=== PATIENT | female | born 1980 | race Caucasian/White ===

== ENCOUNTER 2018-02-01 09:52 | Inpatient (IN) | payer OTHER ==
[2018-02-01] MEDS ORDERED: SODIUM CHLORIDE 0.9% 1000 ML INFUS.BAG IV STA (10:21)
[2018-02-01] MEDS ORDERED: ACETAMINOPHEN 1000 MG/100 ML VIAL (NON FORMULARY) IVPB ONE (10:22)
[2018-02-01] MEDS ORDERED: ALBUTEROL SO4 2.5/IPRATROPIUM 0.5 INH SOL 3 ML VIAL.NEB. NEB ONE ×2 (10:22→11:12)
--- NOTE | 2018-02-01 10:51 | PDOC ---
History of Present Illness <Tonia Lerner - Last Filed: 02/01/18 12:30> - General History Source: Patient - History of Present Illness Initial Comments: 02/01/18 10:45 Patient is a 37F with no significant medical history here today complaining of chest pain, fever, cough and shortness of breath for the past two weeks. She was seen at [facility] where she was diagnosed with pneumonia and discharged on doxycycline. Patient is on day 7/10 days of 100mg BID doxycycline. Patient was also discharged with a course of steroids that she completed. Patient describes her chest pain as a substernal pain that worsens with inspiration and cough. Patient reports coughing repeatedly until she feels like she cannot breathe. LMP 2 weeks ago. <Daniel Scanlon - Last Filed: 02/01/18 15:21> - General Chief Complaint: Respiratory Stated Complaint: CHEST PAIN Time Seen by Provider: 02/01/18 10:14 Past History <Tonia Lerner - Last Filed: 02/01/18 12:30> - Past Medical History COPD: No - Suicide/Smoking/Psychosocial Hx Smoking History: Never smoked Hx Alcohol Use: No Drug/Substance Use Hx: No <Daniel Scanlon - Last Filed: 02/01/18 15:21> - Past Medical History Allergies/Adverse Reactions: Allergies Allergy/AdvReac Type Severity Reaction Status Date / Time No Known Allergies Allergy Verified 02/01/18 10:04 Home Medications: Ambulatory Orders Unobtainable 02/01/18 Review of Systems - Review of Systems Comments:: 02/01/18 10:49 GENERAL/CONSTITUTIONAL: +fever +chills. No weakness. HEAD, EYES, EARS, NOSE AND THROAT: No change in vision. No sore throat. CARDIOVASCULAR: +chest pain +shortness of breath RESPIRATORY: +cough, +wheezing, no hemoptysis. GASTROINTESTINAL: No nausea, vomiting, diarrhea or constipation. GENITOURINARY: No dysuria, frequency, or change in urination. MUSCULOSKELETAL: No joint or muscle swelling or pain. No neck or back pain. SKIN: No rash NEUROLOGIC: No headache, vertigo, loss of consciousness, or change in strength/ sensation. ENDOCRINE: No increased thirst. No abnormal weight change HEMATOLOGIC/LYMPHATIC: No anemia, easy bleeding, or history of blood clots. ALLERGIC/IMMUNOLOGIC: No hives or skin allergy. <EronDaniel grant - Last Filed: 02/01/18 15:21> *Physical Exam - Vital Signs Last Vital Signs Temp Pulse Resp BP Pulse Ox 100.3 F H 102 H 20 135/97 100 02/01/18 10:20 02/01/18 10:20 02/01/18 10:20 02/01/18 10:20 02/01/18 11:10 <Tonia Lerner - Last Filed: 02/01/18 12:30> - Vital Signs Last Vital Signs Temp Pulse Resp BP Pulse Ox 100.3 F H 102 H 20 135/97 99 02/01/18 10:20 02/01/18 10:20 02/01/18 10:20 02/01/18 10:20 02/01/18 10:20 - Physical Exam Comments: 02/01/18 10:51 GENERAL: Awake, alert, and fully oriented, coughing HEAD: No signs of trauma, normocephalic, atraumatic EYES: PERRLA, EOMI, sclera anicteric, conjunctiva clear ENT: Auricles normal inspection, hearing grossly normal, nares patent, oropharynx clear without exudates. Moist mucosa NECK: Normal ROM, supple, no lymphadenopathy, JVD, or masses LUNGS: No distress, speaks full sentences, wheezing bilaterally HEART: Tachycardic, regular rhythm, normal S1 and S2, no murmurs, rubs or gallops, peripheral pulses normal and equal bilaterally. ABDOMEN: Soft, nontender, normoactive bowel sounds. No guarding, no rebound. No masses EXTREMITIES: Normal inspection, Normal range of motion, no edema. No clubbing or cyanosis. NEUROLOGICAL: Cranial nerves II through XII grossly intact. Normal speech, no focal sensorimotor deficits SKIN: Warm, Dry, normal turgor, no rashes or lesions noted. <GhislaineDaniel - Last Filed: 02/01/18 15:21> ED Treatment Course - LABORATORY CBC & Chemistry Diagram: 02/01/18 11:10 02/01/18 11:42 - ADDITIONAL ORDERS Additional order review: Laboratory Results 02/01/18 02/01/18 02/01/18 11:42 11:42 11:38 PT with INR INR PTT (Actin FS) VBG pH 7.37 POC VBG pCO2 52.0 POC VBG pO2 31.7 Mixed VBG HCO3 29.0 H Sodium 143 Potassium 3.9 Chloride 104 Carbon Dioxide 28 Anion Gap 11 BUN 9 Creatinine 0.6 Creat Clearance w eGFR > 60 Random Glucose 90 Lactic Acid Calcium 9.1 Total Bilirubin 0.3 AST 16 ALT 21 Alkaline Phosphatase 82 Troponin I < 0.02 Total Protein 7.6 Albumin 3.8 Serum , Qual Negative 02/01/18 02/01/18 11:10 11:10 PT with INR 11.60 INR 1.03 PTT (Actin FS) 31.6 VBG pH POC VBG pCO2 POC VBG pO2 Mixed VBG HCO3 Sodium Potassium Chloride Carbon Dioxide Anion Gap BUN Creatinine Creat Clearance w eGFR Random Glucose Lactic Acid 2.9 H* Calcium Total Bilirubin AST ALT Alkaline Phosphatase Troponin I Total Protein Albumin Serum , Qual 02/01/18 11:10 RBC 4.36 MCV 82.0 MCHC 31.7 L RDW 16.3 H MPV 8.4 Neutrophils % No Result Required. Lymphocytes % No Result Required. - Medications Given in the ED: ED Medications Discontinued Medications Generic Name Dose Route Start Last Admin Trade Name Negar PRN Reason Stop Dose Admin Acetaminophen 1,000 mg 02/01/18 10:22 02/01/18 11:13 Ofirmev Injection - IVPB 02/01/18 10:23 1,000 mg ONCE ONE Administration Albuterol/Ipratropium 3 amp 02/01/18 10:22 02/01/18 11:13 Duoneb - NEB 02/01/18 10:23 3 amp ONCE ONE Administration Sodium Chloride 2,000 ml 02/01/18 10:21 02/01/18 11:13 Normal Saline - IV 02/01/18 10:22 2,000 ml ONCE STA Administration <Tonia Lerner - Last Filed: 02/01/18 12:30> - LABORATORY CBC & Chemistry Diagram: 02/01/18 11:10 02/01/18 11:42 - RADIOLOGY Radiology Studies Ordered: Category Date Time Status CHEST X-RAY PORTABLE* [RAD] Stat Radiology 02/01/18 10:21 Ordered <Daniel Scanlon - Last Filed: 02/01/18 15:21> Medical Decision Making - Medical Decision Making 02/01/18 10:54 Patient is 37F with no significant medical history here today with cough, fever , chest pain and shortness of breath. Vital signs notable for tachycardia and fever. Septic workup initiated, treating with 2L fluids (30cc/kg), duonebs and tylenol. Likely pneumonia, also considering asthma exacerbation. 02/01/18 11:11 CXR shows no acute cardiopulmonary process. EKG shows sinus tachycardia with rate of 108. No st elevations/depressions. Normal axis. Normal intervals. No significant t wave abnormalities. 02/01/18 12:19 CBC normal, lactate 2.9. Given ceftriaxone/azithro, strongly suspect pneumonia given symptomology and fever. Will admit for failure of outpatient therapy. UA clear, repeat lactate 2.4. Admitted to [facility]. <Daniel Scanlon - Last Filed: 02/01/18 15:21> *DC/Admit/Observation/Transfer - Discharge Dispostion Decision to Admit order: Yes Decision to Admit order Date/Time: Decision to Admit Order Category Date Time Status Decision to Admit to Hospital Routine Admission 02/01/18 11:34 Active <Tonia Lerner - Last Filed: 02/01/18 12:30> - Discharge Dispostion Decision to Admit order: Yes <Daniel Scanlon - Last Filed: 02/01/18 15:21> Diagnosis at time of Disposition: Pneumonia, Lactic acidosis - Discharge Dispostion Condition at time of disposition: Stable
--- NOTE | 2018-02-01 10:54 | PDOC ---
Attending Attestation - Medical Decision Making 02/01/18 12:15pm Call placed to Dr. Ramsey admitting doctor for Dr. Mayuri Lin, awaiting call back. 12:55pm Second call placed to Dr. Ramsey admitting doctor for Dr. Mayuri Lin, awaiting call back. 2:35pm Third call placed to Dr. Ramsey admitting doctor for Dr. Mayuri Lin, awaiting call back. <Phill Landeros - Last Filed: 02/01/18 14:35> - Resident Resident Name: Daniel Scanlon - ED Attending Attestation I have performed the following: I have examined & evaluated the patient, The case was reviewed & discussed with the resident, I agree w/resident's findings & plan - HPI HPI: 02/01/18 11:25 Markus 37 YOF presenting with worsening chest tightness, sob, productive cough, worse with inspiration, fevers and chills, malaise x 3 weeks. Dx.d at [facility] ED with pneumonia, rxd doxycycline on day 710 without improvement. Also given albuterol inhaler and steroids w/o relief. - Physicial Exam PE: 02/01/18 11:25 +mild distress 2/2 coughing. MMM, nl conjunctiva, anicteric; neck supple. lungs with scant bibasilar wheezing. +tachy. no murmurs or rubs. +reproducible costal rib tenderness to palpation. abdomen soft nontender. DAVID x4. No peripheral edema. normal color for ethnicity, [facility]. - Medical Decision Making 02/01/18 11:25 Markus 37 YOF presenting with worsening chest tightness, sob, productive cough, worse with inspiration, fevers and chills, malaise x 3 weeks. Dx.d at [facility] ED with pneumonia, rxd doxycycline on day 7/10 without improvement. Also given albuterol inhaler and steroids w/o relief. DDx SOB: bronchitis, pleurisy, pneumonia, viral syndrome, sepsis. Pericarditis, myocarditis, Dehydration. costochondritis. anemia, electrolyte/metabolic derangements. Vital signs reviewed, notable for mild tachy 103 bpm and fever 100.3.. Given antipyretics, fluids for hydration, duonebs, ceftriaxone and azithromycin, failing outpatient therapy for clinical pneumonia treatment laboratory results and imaging reviewed, basic labs and lytes wnl, notable for normal WBC, lytes, LFTs and trop, so doubt cardiac. +lactic elevated, consistent with infection vs dehydration. Cxr clear, but clinically with viral vs bacterial pneumonia, treated with IV abx tailored to respiratory etiology and typical/atypical organisms. lactate downtrending on repeat. EKG normal sinus rhythm, no interval abnormalities, narrow QRS, ST and T wave segments and morphology normal. Nonspecific T wave abnormalities Dispo: admit for suspected pneumonia and lactic acidosis, failing OP treatment. IV hydration, abx and continued supportive care. admit Dr. Lin/Cortez 02/01/18 12:59 02/01/18 15:21 <Tonia Lerner - Last Filed: 02/01/18 15:21> Attestations - Attestations 02/01/18 13:17 Documentation prepared by Phill Landeros, acting as medical practice administrator for Tonia Lerner MD. <Phill Landeros - Last Filed: 02/01/18 14:35> - Attestations Physician Attestation: 02/01/18 15:21 I, Tonia Lerner MD, attest that this document has been prepared under my direction and personally reviewed by me in its entirety. I further attest, that it accurately reflects all work, treatment, procedures and medical decision -making performed by me. <Tonia Lerner - Last Filed: 02/01/18 15:21>
[2018-02-01] MEDS ORDERED: ACETAMINOPHEN INJECTION 100 ML IVPB ONE (11:12)
[2018-02-01 11:53] LABS: VENOUS PH 7.37 (7.32-7.42); VENOUS PO2 31.7 mmHg (28-48)
[2018-02-01 11:54] LABS: HEMATOCRIT 35.8 % (32.4-45.2); HEMOGLOBIN 11.3 GM/dL (10.7-15.3); MCHC 31.7 g/dl (32.0-36.0); MEAN PLT VOLUME 8.4 fl (7.5-11.1); PLATELET COUNT 246 K/MM3 (134-434); RBC 4.36 M/mm3 (3.60-5.2); RDW 16.3 % (11.6-15.6); WHITE BLOOD COUNT 9.4 K/mm3 (4.0-10.0)
[2018-02-01 12:03] LABS: INR 1.03 (0.83-1.09); PROTHROMBIN TIME (PATIENT) 11.6 SEC (9.7-13.0)
[2018-02-01 12:05] LABS: ACTIVATED PTT 31.6 SECONDS (25.2-36.5)
[2018-02-01] MEDS ORDERED: AZITHROMYCIN IVPB 500 MG in DEXTROSE 5%-WATER - 250 ML IVPB ONE (12:09)
[2018-02-01] MEDS ORDERED: CEFTRIAXONE 1,000 MG in DEXTROSE 5%-WATER - 50 ML IVPB ONE (12:09)
[2018-02-01 12:14] LABS: ALBUMIN 3.8 g/dl (3.4-5.0); ANION GAP 11 MMOL/L (8-16); BILIRUBIN,TOTAL 0.3 mg/dL (0.2-1.0); BLOOD UREA NITROGEN 9 mg/dL (7-18); CALCIUM 9.1 mg/dL (8.5-10.1); CHLORIDE 104 mmol/L (98-107); CO2 28 mmol/L (21-32); CREATININE 0.6 mg/dL (0.55-1.3); GLUCOSE,RANDOM 90 mg/dL (74-106); POTASSIUM 3.9 mmol/L (3.5-5.1); SGOT/AST 16 U/L (15-37); SGPT/ALT 21 U/L (13-61); SODIUM 143 mmol/L (136-145); TOT PROT 7.6 g/dl (6.4-8.2)
[2018-02-01 12:17] LABS: ALK PHOS 82 U/L (45-117)
[2018-02-01 12:30] LABS: PLATELET ESTIMATE ADEQUATE
[2018-02-01] MEDS ORDERED: CEFTRIAXONE 1 GM/50 ML BAG ONE (12:52)
[2018-02-01] MEDS ORDERED: AZITHROMYCIN IVPB 250 ML IVPB ONE (12:52)
[2018-02-01 14:16] LABS: PH,URINE 6.5 (5.0-8.0); URINE APPEARANCE Clear; URINE BILIRUBIN Negative (<2.0 mg/dL); URINE COLOR Yellow; URINE GLUCOSE (UA) Negative (NEGATIVE); URINE KETONE Negative (NEGATIVE); URINE LEUK ESTERASE TRACE (NEGATIVE); URINE NITRITE Negative (NEGATIVE); URINE PROTEIN Negative (NEGATIVE); URINE UROBILINOGEN 0.2 mg/dL (0.2-1.0)
--- NOTE | 2018-02-01 15:02 | HP ---
Admitting History and Physical - Admission Chief Complaint: cough and sob History of Present Illness: Patient is a 37F with no significant medical history here today complaining of chest pain, fever, cough and shortness of breath for the past two weeks. She was seen at [facility] where she was diagnosed with pneumonia and discharged on doxycycline. Patient is on day 7/10 days of 100mg BID doxycycline. Patient was also discharged with a course of steroids that she completed. Patient describes her chest pain as a substernal pain that worsens with inspiration and cough. Patient reports coughing repeatedly until she feels like she cannot breathe. LMP 2 weeks ago. in ER she has temp 100.3 lactic 2.9 got rocephin,zithromycin,albuterol History Source: Medical Record Limitations to Obtaining History: Language Barrier - Smoking History Smoking history: Never smoked - Alcohol/Substance Use Hx Alcohol Use: No Home Medications - Allergies Allergies/Adverse Reactions: Allergies Allergy/AdvReac Type Severity Reaction Status Date / Time No Known Allergies Allergy Verified 02/01/18 10:04 - Home Medications Home Medications: Ambulatory Orders Unobtainable 02/01/18 Review of Systems - Review of Systems Cardiovascular: reports: Chest Pain Respiratory: reports: Cough, SOB Physical Examination Vital Signs: Vital Signs Temperature 97.9 F 02/01/18 14:17 Pulse Rate 98 H 02/01/18 14:17 Respiratory Rate 18 02/01/18 14:17 Blood Pressure 126/73 02/01/18 14:17 O2 Sat by Pulse Oximetry (%) 100 02/01/18 14:17 Constitutional: Yes: Mild Distress Cardiovascular: Yes: Regular Rate and Rhythm, Tachycardia, S1, S2 Respiratory: Yes: Diminished, Poor Air Entry Gastrointestinal: Yes: Normal Bowel Sounds, Soft Edema: No Neurological: Yes: Alert, Oriented Labs: CBC, BMP 02/01/18 11:10 02/01/18 11:42 Imaging - Results Chest X-ray: Report Reviewed Problem List - Problems (1) Shortness of breath Assessment/Plan: rocephin,azithromyicin nebulizer steroids oxygen repeat lactic acid chest pain secondary to coughing dvt ppx: early ambulation oob to chair low risk cultures pending Code(s): R06.02 - SHORTNESS OF BREATH (2) Lactic acidosis Assessment/Plan: repeat lactic acid secondary to infection given tachycardia and fever still elevated on repeat draw Code(s): E87.2 - ACIDOSIS
[2018-02-01] MEDS: guaiFENesin 200 MG/10 ML 10 ML UNIT-DOSE CUPS PO PRN (15:41)
[2018-02-01] MEDS: methylPREDNISolone NA SUCC 40 MG/1 ML VIAL IVPUSH SCH ×2 (15:42→21:25)
[2018-02-01] MEDS: ALBUTEROL SO4 0.083% IH SOL 2.5 MG/3 ML VIAL.NEB. NEB SCH ×2 (15:50→21:39)
[2018-02-01 16:18] VITALS: BMI 25.4
[2018-02-01] MEDS: ACETAMINOPHEN 325 MG TABLET (FP) PO PRN (16:27)
[2018-02-01] MEDS: SODIUM CHLORIDE 1,000 ML IV SCH (17:35)
[2018-02-01] MEDS: PANTOPRAZOLE 40 MG TABLET (FP) PO SCH (17:35)
[2018-02-01] MEDS: METHYL SALICYLATE/MENTHOL OINT 30 GM TUBE TP SCH (22:50)
[2018-02-02] MEDS: guaiFENesin 200 MG/10 ML 10 ML UNIT-DOSE CUPS PO PRN ×3 (01:06→16:05)
[2018-02-02] MEDS: ACETAMINOPHEN 325 MG TABLET (FP) PO PRN ×2 (01:06→16:02)
[2018-02-02] MEDS: methylPREDNISolone NA SUCC 40 MG/1 ML VIAL IVPUSH SCH ×4 (03:06→21:32)
[2018-02-02] MEDS: SODIUM CHLORIDE 1,000 ML IV SCH ×2 (06:36→21:57)
[2018-02-02] MEDS: ALBUTEROL SO4 0.083% IH SOL 2.5 MG/3 ML VIAL.NEB. NEB SCH ×4 (07:30→15:35)
--- NOTE | 2018-02-02 08:03 | PN ---
Progress Note, Physician Chief Complaint: NOTES REVIEWED PATIENT AWAKE ALERT COMFORTABLE - Current Medication List Current Medications: Active Medications Acetaminophen (Tylenol -) 650 mg PO Q6H PRN PRN Reason: FEVER Last Admin: 02/02/18 01:06 Dose: 650 mg Albuterol Sulfate (Ventolin 0.083% Nebulizer Soln -) 1 amp NEB RQID ZOYA Last Admin: 02/01/18 21:39 Dose: 1 amp Guaifenesin (Robitussin -) 10 ml PO Q6H PRN PRN Reason: COUGH Last Admin: 02/02/18 01:06 Dose: 10 ml Ceftriaxone Sodium 1 gm/ (Dextrose) 50 mls @ 100 mls/hr IVPB DAILY ZOYA; Protocol Stop: 02/09/18 09:59 Sodium Chloride (Normal Saline -) 1,000 mls @ 83 mls/hr IV ASDIR ZOYA Last Admin: 02/02/18 06:36 Dose: 83 mls/hr Methyl Salicylate (Sanjay-Lal -) 1 applic TP BID ZOYA Last Admin: 02/01/18 22:50 Dose: 1 applic Methylprednisolone Sodium Succinate (Solu-Medrol -) 40 mg IVPUSH Q6H-IV ZOYA Last Admin: 02/02/18 03:06 Dose: 40 mg Pantoprazole Sodium (Protonix -) 40 mg PO DAILY ZOYA Last Admin: 02/01/18 17:35 Dose: 40 mg - Objective Vital Signs: Vital Signs Temperature 98.3 F 02/01/18 21:26 Pulse Rate 82 02/01/18 21:26 Respiratory Rate 21 02/01/18 21:00 Blood Pressure 118/78 02/01/18 21:26 O2 Sat by Pulse Oximetry (%) 97 02/01/18 21:46 Constitutional: Yes: Mild Distress Eyes: Yes: WNL HENT: Yes: WNL Neck: Yes: WNL Cardiovascular: Yes: WNL Respiratory: Yes: On Nasal O2, Wheezes Gastrointestinal: Yes: WNL Genitourinary: Yes: WNL Musculoskeletal: Yes: WNL Extremities: Yes: WNL Edema: No Peripheral Pulses WNL: Yes Integumentary: Yes: WNL Wound/Incision: Yes: Clean/Dry Neurological: Yes: WNL ...Motor Strength: WNL Psychiatric: Yes: WNL Labs: CBC, BMP 02/01/18 11:10 02/01/18 11:42 INR, PTT INR 1.03 (0.83-1.09) 02/01/18 11:10 Problem List - Problems (1) Acute bronchitis Code(s): J20.9 - ACUTE BRONCHITIS, UNSPECIFIED (2) Lactic acidosis Code(s): E87.2 - ACIDOSIS (3) Pneumonia Code(s): J18.9 - PNEUMONIA, UNSPECIFIED ORGANISM (4) Shortness of breath Code(s): R06.02 - SHORTNESS OF BREATH Assessment/Plan IV ABX NEBS STEROIDS DVT PROPHYLAXIS
[2018-02-02 08:14] LABS: BASO % 0.1 % (0-2.0); HEMATOCRIT 34.3 % (32.4-45.2); LYMPH % 11.9 % (8-40); MCH 26.3 pg (25.7-33.7); MCHC 32.1 g/dl (32.0-36.0); MEAN CELL VOLUME 81.8 fl (80-96); MEAN PLT VOLUME 8.4 fl (7.5-11.1); MONO % 1.3 % (3.8-10.2); NEUT % 86.7 % (42.8-82.8); PLATELET COUNT 221 K/MM3 (134-434); RBC 4.19 M/mm3 (3.60-5.2); RDW 16.2 % (11.6-15.6)
[2018-02-02 08:39] LABS: INR 1.08 (0.83-1.09); PROTHROMBIN TIME (PATIENT) 12.2 SEC (9.7-13.0)
[2018-02-02 08:42] LABS: ACTIVATED PTT 32.3 SECONDS (25.2-36.5)
[2018-02-02 08:52] LABS: ALBUMIN 3.4 g/dl (3.4-5.0); ANION GAP 7 MMOL/L (8-16); BILIRUBIN,TOTAL 0.3 mg/dL (0.2-1.0); BLOOD UREA NITROGEN 8 mg/dL (7-18); CALCIUM 8.8 mg/dL (8.5-10.1); CHLORIDE 106 mmol/L (98-107); CO2 27 mmol/L (21-32); CREATININE 0.5 mg/dL (0.55-1.3); GLUCOSE,RANDOM 128 mg/dL (74-106); PHOSPHOROUS 4.3 mg/dL (2.5-4.9); POTASSIUM 4.8 mmol/L (3.5-5.1); SGOT/AST 18 U/L (15-37); SGPT/ALT 21 U/L (13-61); SODIUM 140 mmol/L (136-145); TOT PROT 7.3 g/dl (6.4-8.2)
[2018-02-02 08:53] LABS: ALK PHOS 83 U/L (45-117)
[2018-02-02] MEDS ORDERED: DEXTROSE 5%-WATER - 50 ML IVPB ONE (08:54)
[2018-02-02] MEDS ORDERED: cefTRIAXone SODIUM 1 GM VIAL ONE (08:54)
[2018-02-02] MEDS: PANTOPRAZOLE 40 MG TABLET (FP) PO SCH (09:00)
[2018-02-02] MEDS: CEFTRIAXONE 1 GM in DEXTROSE 5%-WATER - 50 ML IVPB SCH (09:00)
[2018-02-02] MEDS: METHYL SALICYLATE/MENTHOL OINT 30 GM TUBE TP SCH ×2 (09:05→21:33)
[2018-02-02] MEDS: AZITHROMYCIN 250 MG TABLET PO SCH (09:52)
--- NOTE | 2018-02-02 11:13 | CON.PULM ---
Consult Consult Specialty:: PULM/CCM Referred by:: KAZ Reason for Consultation:: SOB - History of Present Illness Chief Complaint: SOB History of Present Illness: 37 F, non-smoker. No previous respiratory issues. Developed constitutional symptoms about 3 weeks ago. Went to [facility] ER and was given Doxycycline (she is on day 11/27). Cough has not gotten better. Reports SOB/GUIDRY and wheezing. No previous history of bronchospasm. Life long non-smoker. No travel history. Potential sick contact from one of her two employers (She is a [employer]). No hemoptysis. - History Source History Provided By: Patient Limitations to Obtaining History: No Limitations - Past Medical History Pulmonary: No: Asthma, Bronchitis, COPD, Pneumonia, Previously Intubated, Pulmonary Embolus, Pulmonary Fibrosis, Sleep Apnea ...: No - Alcohol/Substance Use Hx Alcohol Use: Yes (sometimes) - Smoking History Smoking history: Never smoked Home Medications - Allergies Allergies/Adverse Reactions: Allergies Allergy/AdvReac Type Severity Reaction Status Date / Time No Known Allergies Allergy Verified 02/01/18 10:04 - Home Medications Home Medications: Ambulatory Orders Albuterol Sulfate [Proair Hfa] 8.5 gm IH Q6H PRN 02/01/18 Benzonatate [Tessalon Pearls -] 200 mg PO TID 02/01/18 Doxycycline Hyclate [Vibratab -] 100 mg PO BID 02/01/18 Ibuprofen 400 mg PO Q6H PRN 02/01/18 Methyl Salicylate/Menth/Camph [Bengay Ultra Strength Cream] 57 gm TP PRN PRN Omeprazole 20 mg PO DAILY 02/01/18 Review of Systems - Review of Systems Constitutional: reports: Malaise, Weakness. denies: Chills, Night Sweats, Unintentional Wgt. Loss Eyes: reports: No Symptoms HENT: reports: No Symptoms Neck: reports: No Symptoms Cardiovascular: reports: Shortness of Breath. denies: Chest Pain, Edema Respiratory: reports: Cough, SOB, SOB on Exertion, Wheezing. denies: Hemoptysis , Snoring Gastrointestinal: reports: No Symptoms Genitourinary: reports: No Symptoms Breasts: reports: No Symptoms Reported Musculoskeletal: reports: No Symptoms Integumentary: reports: No Symptoms Neurological: reports: No Symptoms Endocrine: reports: No Symptoms Hematology/Lymphatic: reports: No Symptoms Psychiatric: reports: No Symptoms Physical Exam Vital Sings: Vital Signs Temperature 97.9 F 02/02/18 10:00 Pulse Rate 102 H 02/02/18 10:00 Respiratory Rate 20 02/02/18 10:00 Blood Pressure 120/78 02/02/18 10:00 O2 Sat by Pulse Oximetry (%) 96 02/02/18 09:00 Constitutional: Yes: No Distress, Calm Eyes: Yes: Conjunctiva Clear, EOM Intact HENT: Yes: Atraumatic, Normocephalic Neck: Yes: Supple, Trachea Midline Cardiovascular: Yes: Regular Rate and Rhythm Respiratory: Yes: Cough, Diminished, On Nasal O2, Rhonchi, SOB, SOB on Exertion , Wheezes. No: Accessory Muscle Use, Rales, Stridor, Tachypnea ...Inspection: Yes: WNL ...Clubbing: No Gastrointestinal: Yes: Normal Bowel Sounds, Soft Renal/: Yes: WNL Breast(s): Yes: WNL Musculoskeletal: Yes: WNL Extremities: Yes: WNL Edema: No Peripheral Pulses WNL: Yes Integumentary: Yes: WNL Neurological: Yes: WNL, Alert, Oriented ...Motor Strength: WNL Psychiatric: Yes: WNL, Alert, Oriented Labs: CBC, BMP 02/02/18 07:00 02/02/18 07:00 Imaging - Results Chest X-ray: Report Reviewed, Image Reviewed Problem List - Problems (1) Acute bronchitis Code(s): J20.9 - ACUTE BRONCHITIS, UNSPECIFIED (2) Lactic acidosis Code(s): E87.2 - ACIDOSIS (3) Pneumonia Code(s): J18.9 - PNEUMONIA, UNSPECIFIED ORGANISM (4) Shortness of breath Code(s): R06.02 - SHORTNESS OF BREATH Assessment/Plan ABX noted Medrol BD TX O2 as needed VTE prophylaxis No smoking PFTs once stable as an outpatient Will follow Thank you. Dr Prado
[2018-02-02] MEDS ORDERED: PT OWN MED DRAWER 7, Y5N ONE (21:08)
[2018-02-03] MEDS: guaiFENesin 200 MG/10 ML 10 ML UNIT-DOSE CUPS PO PRN ×3 (01:15→19:51)
[2018-02-03] MEDS: ACETAMINOPHEN 325 MG TABLET (FP) PO PRN ×3 (01:17→19:51)
[2018-02-03] MEDS: methylPREDNISolone NA SUCC 40 MG/1 ML VIAL IVPUSH SCH ×4 (02:51→21:36)
[2018-02-03] MEDS: ALBUTEROL SO4 0.083% IH SOL 2.5 MG/3 ML VIAL.NEB. NEB SCH ×4 (07:50→20:09)
[2018-02-03] MEDS ORDERED: cefTRIAXone SODIUM 1 GM VIAL ONE (08:41)
[2018-02-03] MEDS ORDERED: DEXTROSE 5%-WATER - 50 ML IVPB ONE (08:41)
[2018-02-03] MEDS: SODIUM CHLORIDE 1,000 ML IV SCH ×2 (09:04→21:36)
[2018-02-03] MEDS: AZITHROMYCIN 250 MG TABLET PO SCH (09:05)
[2018-02-03] MEDS: PANTOPRAZOLE 40 MG TABLET (FP) PO SCH (09:05)
[2018-02-03] MEDS: CEFTRIAXONE 1 GM in DEXTROSE 5%-WATER - 50 ML IVPB SCH (09:06)
[2018-02-03] MEDS: METHYL SALICYLATE/MENTHOL OINT 30 GM TUBE TP SCH ×2 (09:09→21:44)
--- NOTE | 2018-02-03 10:35 | PN ---
Progress Note, Physician Chief Complaint: AWAKE ALERT COUGHING PRODUCTIVE CLEAR/YELLOW SPUTUM NO FEVERS NO CHILLS - Current Medication List Current Medications: Active Medications Acetaminophen (Tylenol -) 650 mg PO Q6H PRN PRN Reason: FEVER Last Admin: 02/03/18 09:05 Dose: 650 mg Albuterol Sulfate (Ventolin 0.083% Nebulizer Soln -) 1 amp NEB RQID ZOYA Last Admin: 02/03/18 07:50 Dose: 1 amp Azithromycin (Zithromax -) 250 mg PO DAILY ZOYA Last Admin: 02/03/18 09:05 Dose: 250 mg Guaifenesin (Robitussin -) 10 ml PO Q6H PRN PRN Reason: COUGH Last Admin: 02/03/18 09:05 Dose: 10 ml Ceftriaxone Sodium 1 gm/ (Dextrose) 50 mls @ 100 mls/hr IVPB DAILY [facility]; Protocol Stop: 02/09/18 09:59 Last Admin: 02/03/18 09:06 Dose: 100 mls/hr Sodium Chloride (Normal Saline -) 1,000 mls @ 83 mls/hr IV ASDIR ZOYA Last Admin: 02/03/18 09:04 Dose: 83 mls/hr Methyl Salicylate (Sanjay-Lal -) 1 applic TP BID ZOYA Last Admin: 02/03/18 09:09 Dose: 1 applic Methylprednisolone Sodium Succinate (Solu-Medrol -) 40 mg IVPUSH Q6H-IV ZOYA Last Admin: 02/03/18 09:06 Dose: 40 mg Pantoprazole Sodium (Protonix -) 40 mg PO DAILY ZOYA Last Admin: 02/03/18 09:05 Dose: 40 mg - Objective Vital Signs: Vital Signs Temperature 97.9 F 02/03/18 10:26 Pulse Rate 103 H 02/03/18 10:26 Respiratory Rate 18 02/03/18 10:26 Blood Pressure 138/89 02/03/18 10:26 O2 Sat by Pulse Oximetry (%) 95 02/03/18 08:55 Constitutional: Yes: Mild Distress Eyes: Yes: WNL HENT: Yes: WNL Neck: Yes: WNL Cardiovascular: Yes: WNL Respiratory: Yes: Cough, Wheezes Gastrointestinal: Yes: WNL Genitourinary: Yes: WNL Musculoskeletal: Yes: WNL Extremities: Yes: WNL Edema: No Peripheral Pulses WNL: Yes Integumentary: Yes: WNL Wound/Incision: Yes: Clean/Dry Neurological: Yes: WNL ...Motor Strength: WNL Psychiatric: Yes: WNL Labs: CBC, BMP 02/02/18 07:00 02/02/18 07:00 INR, PTT INR 1.08 (0.83-1.09) 02/02/18 07:00 Problem List - Problems (1) Acute bronchitis Code(s): J20.9 - ACUTE BRONCHITIS, UNSPECIFIED (2) Lactic acidosis Code(s): E87.2 - ACIDOSIS (3) Pneumonia Code(s): J18.9 - PNEUMONIA, UNSPECIFIED ORGANISM (4) Shortness of breath Code(s): R06.02 - SHORTNESS OF BREATH Assessment/Plan IV ABX NEBS STEROIDS DVT PROPHYLAXIS OOB TO CHAIR
--- NOTE | 2018-02-03 11:30 | PN ---
Progress Note (short form) - Note Progress Note: Breathing feels a little better today. Still with cough, essentially dry. Less wheezing. Constitutional: Yes: No Distress, Calm Eyes: Yes: Conjunctiva Clear, EOM Intact HENT: Yes: Atraumatic, Normocephalic Neck: Yes: Supple, Trachea Midline Cardiovascular: Yes: Regular Rate and Rhythm Respiratory: Yes: Cough, Diminished, On Nasal O2, Rhonchi, Less wheezes. No: Accessory Muscle Use, Rales, Stridor, Tachypnea ...Inspection: Yes: WNL ...Clubbing: No Gastrointestinal: Yes: Normal Bowel Sounds, Soft Renal/: Yes: WNL Breast(s): Yes: WNL Musculoskeletal: Yes: WNL Extremities: Yes: WNL Edema: No Peripheral Pulses WNL: Yes Integumentary: Yes: WNL Neurological: Yes: WNL, Alert, Oriented ...Motor Strength: WNL Psychiatric: Yes: WNL, Alert, Oriented Labs: Problem List - Problems (1) Acute bronchitis Code(s): J20.9 - ACUTE BRONCHITIS, UNSPECIFIED (2) Lactic acidosis Code(s): E87.2 - ACIDOSIS (3) Pneumonia Code(s): J18.9 - PNEUMONIA, UNSPECIFIED ORGANISM (4) Shortness of breath Code(s): R06.02 - SHORTNESS OF BREATH Assessment/Plan ABX Medrol BD TX O2 as needed VTE prophylaxis No smoking PFTs once stable as an outpatient Hopeful D/C in AM Dr Prado Problem List - Problems (1) Acute bronchitis Code(s): J20.9 - ACUTE BRONCHITIS, UNSPECIFIED (2) Lactic acidosis Code(s): E87.2 - ACIDOSIS (3) Pneumonia Code(s): J18.9 - PNEUMONIA, UNSPECIFIED ORGANISM (4) Shortness of breath Code(s): R06.02 - SHORTNESS OF BREATH
--- NOTE | 2018-02-03 21:55 | EKG ---
Test Reason : Blood Pressure : / mmHG Vent. Rate : 082 BPM Atrial Rate : 082 BPM P-R Int : 126 ms QRS Dur : 084 ms QT Int : 370 ms P-R-T Axes : 073 010 026 degrees QTc Int : 432 ms NORMAL SINUS RHYTHM NORMAL ECG WHEN COMPARED WITH ECG OF 01-FEB-2018 10:02, NON-SPECIFIC CHANGE IN ST SEGMENT IN ANTERIOR LEADS Confirmed by KENN MANUEL MD ([id number]) on 02/03/2018 9:55:47 PM Referred By: Confirmed By:KENN MANUEL MD
--- NOTE | 2018-02-03 22:09 | EKG ---
Test Reason : Blood Pressure : / mmHG Vent. Rate : 108 BPM Atrial Rate : 108 BPM P-R Int : 132 ms QRS Dur : 078 ms QT Int : 342 ms P-R-T Axes : 074 014 021 degrees QTc Int : 458 ms SINUS TACHYCARDIA POSSIBLE LEFT ATRIAL ENLARGEMENT NONSPECIFIC ST ABNORMALITY ABNORMAL ECG NO PREVIOUS ECGS AVAILABLE Confirmed by KENN MANUEL MD ([id number]) on 02/03/2018 10:09:17 PM Referred By: Confirmed By:KENN MANUEL MD
[2018-02-04] MEDS: methylPREDNISolone NA SUCC 40 MG/1 ML VIAL IVPUSH SCH ×2 (03:07→09:29)
[2018-02-04 07:02] LABS: HEMOGLOBIN 10.3 GM/dL (10.7-15.3); MCH 26.4 pg (25.7-33.7); MCHC 32.3 g/dl (32.0-36.0); MEAN CELL VOLUME 81.6 fl (80-96); MEAN PLT VOLUME 8.8 fl (7.5-11.1); PLATELET COUNT 232 K/MM3 (134-434); RBC 3.92 M/mm3 (3.60-5.2); RDW 16.6 % (11.6-15.6); WHITE BLOOD COUNT 9.8 K/mm3 (4.0-10.0)
[2018-02-04 07:37] LABS: ANION GAP 11 MMOL/L (8-16); BLOOD UREA NITROGEN 11 mg/dL (7-18); CALCIUM 8.3 mg/dL (8.5-10.1); CHLORIDE 106 mmol/L (98-107); CO2 28 mmol/L (21-32); CREATININE 0.6 mg/dL (0.55-1.3); GLUCOSE,RANDOM 138 mg/dL (74-106); POTASSIUM 4.8 mmol/L (3.5-5.1); SODIUM 145 mmol/L (136-145)
[2018-02-04] MEDS: ALBUTEROL SO4 0.083% IH SOL 2.5 MG/3 ML VIAL.NEB. NEB SCH ×3 (07:50→16:14)
[2018-02-04] MEDS ORDERED: DEXTROSE 5%-WATER - 50 ML IVPB ONE (09:15)
[2018-02-04] MEDS ORDERED: cefTRIAXone SODIUM 1 GM VIAL ONE (09:15)
[2018-02-04] MEDS ORDERED: PT OWN MED DRAWER 7, Y5N ONE (09:15)
[2018-02-04] MEDS: CEFTRIAXONE 1 GM in DEXTROSE 5%-WATER - 50 ML IVPB SCH (09:28)
[2018-02-04] MEDS: METHYL SALICYLATE/MENTHOL OINT 30 GM TUBE TP SCH (09:29)
[2018-02-04] MEDS: PANTOPRAZOLE 40 MG TABLET (FP) PO SCH (09:29)
[2018-02-04] MEDS: AZITHROMYCIN 250 MG TABLET PO SCH (09:30)
--- NOTE | 2018-02-04 12:31 | PN ---
Progress Note (short form) - Note Progress Note: Breathing feels better today. Much improved. Minimal, intermittent posterior pleuritic type pain. Intake & Output 02/01/18 02/02/18 02/03/18 02/04/18 23:59 23:59 23:59 23:59 Intake Total 200 3337 2817 996 Balance 200 3337 2817 996 Weight 139 lb Last Vital Signs Temp Pulse Resp BP Pulse Ox 98.4 F 86 20 137/92 96 02/04/18 09:00 02/04/18 09:00 02/04/18 09:00 02/04/18 09:00 02/04/18 09:00 Active Medications Acetaminophen (Tylenol -) 650 mg PO Q6H PRN PRN Reason: FEVER Last Admin: 02/03/18 19:51 Dose: 650 mg Albuterol Sulfate (Ventolin 0.083% Nebulizer Soln -) 1 amp NEB RQID [facility] Last Admin: 02/04/18 11:40 Dose: 1 amp Azithromycin (Zithromax -) 250 mg PO DAILY [facility] Last Admin: 02/04/18 09:30 Dose: 250 mg Guaifenesin (Robitussin -) 10 ml PO Q6H PRN PRN Reason: COUGH Last Admin: 02/03/18 19:51 Dose: 10 ml Ceftriaxone Sodium 1 gm/ (Dextrose) 50 mls @ 100 mls/hr IVPB DAILY [facility]; Protocol Stop: 02/09/18 09:59 Last Admin: 02/04/18 09:28 Dose: 100 mls/hr Sodium Chloride (Normal Saline -) 1,000 mls @ 83 mls/hr IV ASDIR [facility] Last Admin: 02/03/18 21:36 Dose: 83 mls/hr Methyl Salicylate (Sanjay-Lal -) 1 applic TP BID ZOYA Last Admin: 02/04/18 09:29 Dose: 1 applic Methylprednisolone Sodium Succinate (Solu-Medrol -) 40 mg IVPUSH Q8H-IV ZOYA Pantoprazole Sodium (Protonix -) 40 mg PO DAILY [facility] Last Admin: 02/04/18 09:29 Dose: 40 mg Constitutional: Yes: No Distress, Calm Eyes: Yes: Conjunctiva Clear, EOM Intact HENT: Yes: Atraumatic, Normocephalic Neck: Yes: Supple, Trachea Midline Cardiovascular: Yes: Regular Rate and Rhythm Respiratory: Yes: Cough, Diminished, On Nasal O2, Rhonchi, Less wheezes. No: Accessory Muscle Use, Rales, Stridor, Tachypnea ...Inspection: Yes: WNL ...Clubbing: No Gastrointestinal: Yes: Normal Bowel Sounds, Soft Renal/: Yes: WNL Breast(s): Yes: WNL Musculoskeletal: Yes: WNL Extremities: Yes: WNL Edema: No Peripheral Pulses WNL: Yes Integumentary: Yes: WNL Neurological: Yes: WNL, Alert, Oriented ...Motor Strength: WNL Psychiatric: Yes: WNL, Alert, Oriented Labs: Laboratory Results - last 24 hr 02/04/18 02/04/18 06:10 06:10 WBC 9.8 RBC 3.92 Hgb 10.3 L Hct 32.0 L MCV 81.6 MCH 26.4 MCHC 32.3 RDW 16.6 H Plt Count 232 MPV 8.8 Sodium 145 Potassium 4.8 Chloride 106 Carbon Dioxide 28 Anion Gap 11 BUN 11 Creatinine 0.6 Creat Clearance w eGFR > 60 Random Glucose 138 H Calcium 8.3 L Problem List - Problems (1) Acute bronchitis Code(s): J20.9 - ACUTE BRONCHITIS, UNSPECIFIED (2) Lactic acidosis Code(s): E87.2 - ACIDOSIS (3) Pneumonia Code(s): J18.9 - PNEUMONIA, UNSPECIFIED ORGANISM (4) Shortness of breath Code(s): R06.02 - SHORTNESS OF BREATH Assessment/Plan ABX Can change to Prednisone BD TX O2 as needed VTE prophylaxis No smoking PFTs once stable as an outpatient No Pulmonary contraindication for D/C home today Dr Prado Problem List - Problems (1) Acute bronchitis Code(s): J20.9 - ACUTE BRONCHITIS, UNSPECIFIED (2) Lactic acidosis Code(s): E87.2 - ACIDOSIS (3) Pneumonia Code(s): J18.9 - PNEUMONIA, UNSPECIFIED ORGANISM (4) Shortness of breath Code(s): R06.02 - SHORTNESS OF BREATH
[2018-02-04] MEDS: guaiFENesin 200 MG/10 ML 10 ML UNIT-DOSE CUPS PO PRN (14:09)
[2018-02-04] MEDS: ACETAMINOPHEN 325 MG TABLET (FP) PO PRN (14:09)
[2018-02-04 14:19] VITALS: BP 144/85; PULSE 75; TEMP 98.3
--- NOTE | 2018-02-04 15:10 | DS ---
Physical Examination Vital Signs: Vital Signs Temperature 98.3 F 02/04/18 14:00 Pulse Rate 75 02/04/18 14:00 Respiratory Rate 22 02/04/18 14:00 Blood Pressure 144/85 02/04/18 14:00 O2 Sat by Pulse Oximetry (%) 96 02/04/18 09:00 Constitutional: Yes: Calm, Thin Cardiovascular: Yes: Regular Rate and Rhythm, S1, S2 Respiratory: Yes: CTA Bilaterally Gastrointestinal: Yes: Normal Bowel Sounds, Soft Edema: No Neurological: Yes: Alert, Oriented Labs: CBC, BMP 02/04/18 06:10 02/04/18 06:10 Discharge Summary Reason For Visit: PNEUMONIA Current Active Problems Acute bronchitis (Acute) Lactic acidosis (Acute) Pneumonia (Acute) Shortness of breath (Acute) Hospital Course: - Admission Chief Complaint: cough and sob History of Present Illness: Patient is a 37F with no significant medical history here today complaining of chest pain, fever, cough and shortness of breath for the past two weeks. She was seen at [facility] where she was diagnosed with pneumonia and discharged on doxycycline. Patient is on day 7/10 days of 100mg BID doxycycline. Patient was also discharged with a course of steroids that she completed. Patient describes her chest pain as a substernal pain that worsens with inspiration and cough. Patient reports coughing repeatedly until she feels like she cannot breathe. LMP 2 weeks ago. in ER she has temp 100.3 lactic 2.9 got rocephin,zithromycin,albuterol History Source: Medical Record Limitations to Obtaining History: Language Barrier - Smoking History Smoking history: Never smoked admitted for shortness of breath and cough iv solumedrol now po prednisone taper iv abx change to po PFT as outpatient in a few weeks no smoking Condition: Stable - Instructions Diet, Activity, Other Instructions: prednisone 40mg po bid 2 days 40mg po daily for 2 days 20mg daily for 2 days 10mg for 2 days then stop Referrals: Mayuri Lin [Primary Care Provider] - 1 Week Eric Prado MD [Staff Physician] - 2 Weeks (for pulmonary function test ) Disposition: HOME - Home Medications Comprehensive Discharge Medication List: Ambulatory Orders Albuterol Sulfate [Proair Hfa] 8.5 gm IH Q6H PRN 02/01/18 Benzonatate [Tessalon Pearls -] 200 mg PO TID 02/01/18 Doxycycline Hyclate [Vibratab -] 100 mg PO BID 02/01/18 Ibuprofen 400 mg PO Q6H PRN 02/01/18 Methyl Salicylate/Menth/Camph [Bengay Ultra Strength Cream] 57 gm TP PRN PRN Omeprazole 20 mg PO DAILY 02/01/18
[2018-02-04] MEDS ORDERED: methylPREDNISolone NA SUCC 40 MG/1 ML VIAL IVPUSH SCH (18:00)
== END 2018-02-04 18:42 | disposition home or self-care (01) | DRG 139 ==
LOC: JER 09:52 → JERBED 11:34 → J6S 15:17
PROVIDERS: ADMIT Family Medicine; ATTEND Family Medicine
DX: J18.9 Pneumonia, unspecified organism (principal); E87.2 Acidosis; R06.02 Shortness of breath; J20.9 Acute bronchitis, unspecified
CPT/HCPCS: 36415; 71045-TC-FY; 80048; 80053; 81003; 82550; 82803; 83605; 83735; 84100; 84484; 84703; 85025; 85027; 85610; 85730; 87040; 87086; 93005; 93010; 94640; 99285-25; J0131; J7030; J7620

== ENCOUNTER 2019-01-03 16:26 | Emergency (ER) | payer OTHER ==
[2019-01-03 16:37] VITALS: BP 153/90; PULSE 90; TEMP 98.2; BMI 25.7
--- NOTE | 2019-01-03 16:37 | PDOC ---
Rapid Medical Evaluation Chief Complaint: Pain, Acute Time Seen by Provider: 01/03/19 16:33 Medical Evaluation: Allergies Allergy/AdvReac Type Severity Reaction Status Date / Time No Known Allergies Allergy Verified 02/01/18 10:04 01/03/19 16:33 I have performed a brief in-person evaluation of this patient. The patient presents with a chief complaint of: abd pain with some vag bleeding. LMP 7/4 Pertinent physical exam findings: abd soft, mild tenderness I have ordered the following: Cbc, CMP, BhcG, T and H The patient will proceed to the ED for further evaluation. Discharge Disposition - Diagnosis Abdominal pain - Referrals - Patient Instructions - Post Discharge Activity
--- NOTE | 2019-01-03 16:53 | PDOC ---
History of Present Illness - General Chief Complaint: Vaginal Bleeding Stated Complaint: BLEEDING Time Seen by Provider: 01/03/19 16:33 - History of Present Illness Initial Comments: 01/03/19 18:51 38 year old woman A2 with a history of fibroids s/p myectomy who presents with 5 days of worsening lower abdominal cramping and 1 day of dark vaginal spotting. She reports that she took a test at home last week that was positive. She denies any fever, n/v/d/c, dysuria, hematuria. She has no other complaints. ROS GENERAL/CONSTITUTIONAL: No fever or chills. No weakness. HEAD, EYES, EARS, NOSE AND THROAT: No change in vision. No ear pain or discharge. No sore throat. CARDIOVASCULAR: No chest pain or shortness of breath RESPIRATORY: No cough, wheezing, or hemoptysis. GASTROINTESTINAL: No nausea, vomiting, diarrhea or constipation. GENITOURINARY: No dysuria, frequency, or change in urination. MUSCULOSKELETAL: No joint or muscle swelling or pain. No neck or back pain. SKIN: No rash NEUROLOGIC: No headache, vertigo, loss of consciousness, or change in strength/ sensation. PE GENERAL: Awake, alert, and fully oriented, in no acute distress HEAD: No signs of trauma, normocephalic, atraumatic EYES: EOMI, sclera anicteric, conjunctiva clear ENT: oropharynx clear without exudates. Moist mucosa NECK: Normal ROM, supple LUNGS: No distress, speaks full sentences, clear to auscultation bilaterally HEART: Regular rate and rhythm, normal S1 and S2, no murmurs, rubs or gallops, peripheral pulses normal and equal bilaterally. ABDOMEN: Soft, slight suprapubic tenderness, normoactive bowel sounds. No guarding, no rebound. No masses EXTREMITIES : Normal inspection, Normal range of motion, no edema. No clubbing or cyanosis. NEUROLOGICAL: Cranial nerves II through XII grossly intact. Normal speech, normal gait, no focal sensorimotor deficits SKIN: Warm, Dry, normal turgor, no rashes or lesions noted PELVIC: dark blood in vaginal canal, closed os, no cervical motion tenderness. MDM 38 year old woman A2 with a history of fibroids s/p myectomy who presents with 5 days of worsening lower abdominal cramping and 1 day of dark vaginal spotting. DDX including but not limited to: threatened vs complete vs ectopic W/U: - cbc, cmp, tvus, beta ED Course: labs within normal beta - 7.4 TVUS: nonspecific 0.3cm spherical fluid structure seen within endometrial canal Patient will need repeat bloodwork in 48 hours to trend beta-hcg Khadra Kearns, PGY2 Emergency Medicine Past History - Past Medical History Allergies/Adverse Reactions: Allergies Allergy/AdvReac Type Severity Reaction Status Date / Time No Known Allergies Allergy Verified 01/03/19 16:34 Home Medications: Ambulatory Orders NK [No Known Home Medication] 01/03/19 COPD: No - Immunization History Immunization Up to Date: Yes - Suicide/Smoking/Psychosocial Hx Smoking History: Never smoked Have you smoked in the past 12 months: No Information on smoking cessation initiated: No Hx Alcohol Use: No Drug/Substance Use Hx: No Substance Use Type: None Hx Substance Use Treatment: No *Physical Exam - Vital Signs Last Vital Signs Temp Pulse Resp BP Pulse Ox 98.2 F 90 17 153/90 100 01/03/19 16:34 01/03/19 16:34 01/03/19 16:34 01/03/19 16:34 01/03/19 16:34 ED Treatment Course - LABORATORY CBC & Chemistry Diagram: 01/03/19 16:39 01/03/19 16:39 - RADIOLOGY Radiology Studies Ordered: Category Date Time Status TRANSVAGINAL ULTRASOUND US [US] Stat Ultrasound 01/03/19 16:49 Ordered *DC/Admit/Observation/Transfer Diagnosis at time of Disposition: Abdominal pain, , Vaginal bleeding - Discharge Dispostion Disposition: HOME Condition at time of disposition: Stable Decision to Admit order: No - Referrals Referrals: Mayuri Lin [Primary Care Provider] - Kayla Pacheco MD [Staff Physician] - - Patient Instructions Printed Discharge Instructions: DI for Vaginal Bleeding During Additional Instructions: You were seen in the ED for complaints of vaginal bleeding in . In the ED you were evaluated with labwork and imaging. Your results were showed very low hormone and unclear ultrasound. You should return to the ED on 01/05/19 for repeat bloodwork. You are advised to follow up with your Primary Care Physician within 1 week. You were given a referral to OBGYN to follow up as needed. Return to the ED immediately if you experience worsening vaginal bleeding, abdominal pain, lightheadedness or nausea or vomiting. - Post Discharge Activity
[2019-01-03 17:00] LABS: BASO % 0.7 % (0-2.0); EOS % 0.7 % (0-4.5); HEMATOCRIT 35.3 % (32.4-45.2); HEMOGLOBIN 11.6 GM/dL (10.7-15.3); LYMPH % 31.4 % (8-40); MCH 27.8 pg (25.7-33.7); MCHC 32.9 g/dl (32.0-36.0); MEAN CELL VOLUME 84.3 fl (80-96); MEAN PLT VOLUME 8.8 fl (7.5-11.1); NEUT % 59.2 % (42.8-82.8); PLATELET COUNT 272 K/MM3 (134-434); RBC 4.18 M/mm3 (3.60-5.2); RDW 15.3 % (11.6-15.6); WHITE BLOOD COUNT 6.4 K/mm3 (4.0-10.0)
[2019-01-03 17:21] LABS: ALBUMIN 4.2 g/dl (3.4-5.0); BILIRUBIN,TOTAL 0.2 mg/dL (0.2-1); BLOOD UREA NITROGEN 9.5 mg/dL (7-18); CALCIUM 9.6 mg/dL (8.5-10.1); CREATININE 0.7 mg/dL (0.55-1.3); POTASSIUM 4.3 mmol/L (3.5-5.1); TOT PROT 8.1 g/dl (6.4-8.2)
--- NOTE | 2019-01-03 18:07 | PDOC ---
Attending Attestation - Resident Resident Name: Khadra Kearns - ED Attending Attestation I have performed the following: I have examined & evaluated the patient, The case was reviewed & discussed with the resident, I agree w/resident's findings & plan, Exceptions are as noted - HPI HPI: 01/03/19 17:59 Ms Aparicio is a 38 yo LMP 11/21/2018 presenting to the ER with a complaint of vaginal bleeding The patient has a h/o myomectomy, was told by one person it would be unlikely that she can get Immediately after her surgery she did not have a period Over the past 6 months she has had a normal period Pt has noted intermittent lower abdominal pain for almost one week, the pain has been bearable Over the past day, her pain has become more severe Pt has noted vaginal spotting - when she urinated, she noted bleeding. She is wearing a small pad which is not saturated No dizziness, chest pain, lightheadedness Pt took a home test (4 days ago) and it was positive 01/03/19 18:11 - Physicial Exam PE: 01/03/19 18:07 GENERAL: The patient is in no acute distress. ENT: Ears normal, nares patent, oropharynx clear without exudates. Moist mucous membranes. NECK: Normal range of motion, supple LUNGS: Breath sounds equal, clear to auscultation bilaterally. HEART:Regular rate and rhythm, normal S1 and S2 without murmur, rub or gallop. ABDOMEN: Soft, lower abdominal tenderness PELVIC: per Dr Kearns EXTREMITIES: Normal range of motion NEUROLOGICAL: Cranial nerves II through XII grossly intact. Normal speech. No focal neurological deficits. SKIN: Warm, Dry, normal turgor, no rashes or lesions noted. - Medical Decision Making 01/03/19 18:09 DD: Dysfunctional uterine bleeding, beginning of a normal period, threatened AB Will do: Labs UA TVUS Re Assess 01/03/19 18:33 Laboratory Tests 01/03/19 01/03/19 01/03/19 16:39 16:39 16:39 Hgb 11.6 Hct 35.3 BUN 9.5 Creatinine 0.7 Beta HCG, Quant 7.4 Blood Type O POSITIVE US pending U/S demonstrates intrauterine cystic structure which can not be identified (no pole or yolk sac) Given BHCG level, we would not anticipate to see anything Ovaries unremarkable Pt will be discharged to home Pt asked to return to the ER in 2 days for repeat BHCG and US Clinical impression: Vaginal bleeding, initial presentation (+) BHCG, initial presentation
== END 2019-01-03 19:00 | disposition home or self-care (01) ==
LOC: JER 16:26
DX: O26.891 Other specified pregnancy related conditions, first trimester (principal); Z3A.01 Less than 8 weeks gestation of pregnancy; N93.9 Abnormal uterine and vaginal bleeding, unspecified; R10.2 Pelvic and perineal pain
CPT/HCPCS: 36415; 76817-TC; 80053; 84702; 85025; 86850; 86900; 86901; 99284-25

== ENCOUNTER 2019-07-17 21:38 | Emergency (ER) | payer OTHER ==
[2019-07-17 21:59] VITALS: BP 105/73; BMI 23.3
--- NOTE | 2019-07-17 22:21 | PDOC ---
History of Present Illness - General Chief Complaint: Cold Symptoms Stated Complaint: FEVER Time Seen by Provider: 07/17/19 22:21 - History of Present Illness Initial Comments: 07/17/19 22:49 39 yo F PMH eclampsia s/p with third child, fibroid s/p resection, presenting with fever. Notes two days of full body myalgias, developed fever today. Further complains of nausea without vomiting and headache. Denies CP, SOB, abd pain, urinary changes. Past History - Past Medical History Allergies/Adverse Reactions: Allergies Allergy/AdvReac Type Severity Reaction Status Date / Time No Known Allergies Allergy Verified 07/17/19 23:47 Home Medications: Ambulatory Orders NK [No Known Home Medication] 01/03/19 COPD: No - Reproductive History (#): 6 Para: 3 - Immunization History Immunization Up to Date: Yes - Psycho Social/Smoking Cessation Hx Smoking History: Never smoked Have you smoked in the past 12 months: No Information on smoking cessation initiated: No Hx Alcohol Use: No Drug/Substance Use Hx: No Substance Use Type: None Hx Substance Use Treatment: No Review of Systems - Review of Systems Comments:: 07/17/19 23:15 GENERAL/CONSTITUTIONAL: endorses fever, chills, generalized weakness, and malaise. Denies loss of appetite, weight change HEAD, EYES, EARS, NOSE AND THROAT: denies rhinorrhea, nasal congestion, throat pain, throat swelling, difficulty swallowing, mouth swelling, ear pain, eye pain, visual changes NEUROLOGIC: endorses headache. Denies focal weakness or paresthesias, dizziness, unsteady gait, seizure, mental status changes, bladder or bowel incontinence CARDIOVASCULAR: denies chest pain, syncope, palpitations, irregular heart rate, lightheadedness, peripheral edema RESPIRATORY: denies cough, shortness of breath, dyspnea with exertion, orthopnea, wheezing, stridor, hemoptysis GASTROINTESTINAL: endorses nausea without vomiting. Denies abdominal pain, abdominal distension, diarrhea, constipation, melena, hematochezia GENITOURINARY: denies dysuria, frequency, urgency, hesitancy, hematuria, flank pain, genital pain MUSCULOSKELETAL: endorses myalgias. Denies arthralgia, joint swelling, back pain, neck pain SKIN: denies rash, itching, pallor HEMATOLOGIC/IMMUNOLOGIC: denies easy bleeding, easy bruising, lymphadenopathy, frequent infections ENDOCRINE: denies unexplained weight gain, unexplained weight loss, heat intolerance, cold intolerance PSYCHIATRIC: denies anxiety, depression, suicidal or homicidal ideation, hallucinations *Physical Exam - Vital Signs Last Vital Signs Temp Pulse Resp BP Pulse Ox 103.0 F H 118 H 16 105/73 100 07/17/19 21:57 07/17/19 21:57 07/17/19 21:57 07/17/19 21:57 07/17/19 21:57 - Physical Exam 07/17/19 23:15 Gen: well-developed, well-nourished, appears uncomfortable, wearing multiple layers Neuro: AAOX4, CN II-XII intact, FTN intact, EOMI, PERRLA, 5/5 strength, SILT HEENT: atraumatic, normocephalic, dry mucous membranes Neck: trachea midline, supple CV: tachycardic, regular rhythm, no murmurs, rubs, or gallops Pulm: CTA b/l, no wheezing Abd: soft, non-distended, non-tender MSK: full ROM, intact pulses Extr: no edema, no deformities Skin: warm, dry Medical Decision Making - Medical Decision Making 07/17/19 23:25 Concern for flu. Will get rapid flu, IV for fluids considering nausea, give Zofran and Ofirmev. 07/18/19 00:16 Flu negative. Patient feeling better. Will dc for further outpatient management. Discharge - Discharge Information Problems reviewed: Yes Clinical Impression/Diagnosis: Viral illness Condition: Improved Disposition: HOME - Admission No - Follow up/Referral Referrals: Mayuri Lin [Primary Care Provider] - - Patient Discharge Instructions Additional Instructions: You were seen for flu like illness. Your symptoms improved with fluids and medication. Please drink plenty of fluids and take acetaminophen/ibuprofen as needed. Follow up with your primary care doctor within one week. Return to the ED if you develop worsening symptoms. - Post Discharge Activity
[2019-07-17] MEDS ORDERED: LACTATED RINGERS SOLUTION 1,000 ML/1,000 ML INFUS.BAG IV STA (22:28)
[2019-07-17] MEDS ORDERED: ACETAMINOPHEN 1000 MG/100 ML VIAL (NON FORMULARY) IVPB ONE (22:28)
[2019-07-17] MEDS ORDERED: ONDANSETRON 4 MG/2 ML VIAL IVPUSH ONE (22:28)
[2019-07-17] MEDS ORDERED: ACETAMINOPHEN INJECTION 100 ML IVPB ONE (22:52)
[2019-07-17] MEDS ORDERED: ONDANSETRON 4 MG/2 ML VIAL ONE (22:52)
--- NOTE | 2019-07-17 23:36 | PDOC ---
Attending Attestation - Resident Resident Name: Hugo Mcnamara - ED Attending Attestation I have performed the following: I have examined & evaluated the patient, The case was reviewed & discussed with the resident, I agree w/resident's findings & plan, Exceptions are as noted - HPI HPI: 07/17/19 23:34 See resident HPI - Physicial Exam PE: 07/17/19 23:34 Agree with exam as documented - Medical Decision Making 07/17/19 23:34 39F with viral syndrome symptomatic tx re-eval dispo per clinical course
[2019-07-18 00:50] VITALS: PULSE 98; TEMP 98.6
== END 2019-07-18 00:48 | disposition home or self-care (01) ==
LOC: JER 21:38
PROC: 3E033NZ Introduction of Analgesics, Hypnotics, Sedatives into Peripheral Vein, Percutaneous Approach (ICD-10-PCS; principal; 2019-07-17)
PROC: 3E033GC Introduction of Other Therapeutic Substance into Peripheral Vein, Percutaneous Approach (ICD-10-PCS; 2019-07-17)
DX: B34.9 Viral infection, unspecified (principal)
CPT/HCPCS: 87804; 96374; 96375; 99284-25; J0131

== ENCOUNTER 2020-08-05 10:50 | Emergency (ER) | payer OTHER ==
[2020-08-05 10:52] VITALS: BMI 25.7
[2020-08-05 11:47] LABS: BASO % 0.7 % (0-2.0); EOS % 1.5 % (0-4.5); HEMATOCRIT 39.7 % (32.4-45.2); LYMPH % 26.1 % (8-40); MCH 29.3 pg (25.7-33.7); MCHC 32.8 g/dl (32.0-36.0); MEAN CELL VOLUME 89.1 fl (80-96); MEAN PLT VOLUME 9.3 fl (7.5-11.1); MONO % 7.5 % (3.8-10.2); NEUT % 64.2 % (42.8-82.8); PLATELET COUNT 260 K/MM3 (134-434); RBC 4.45 M/mm3 (3.60-5.2); RDW 13.6 % (11.6-15.6); WHITE BLOOD COUNT 5.9 K/mm3 (4.0-10.0)
[2020-08-05 11:48] LABS: URINE APPEARANCE CLOUDY; URINE BILIRUBIN NEGATIVE (NEGATIVE); URINE COLOR YELLOW; URINE GLUCOSE (UA) NEGATIVE (NEGATIVE)
[2020-08-05 11:49] LABS: EPI CELLS 25.8 /uL (0-25.1); HYALINE CASTS 1.28 /uL (0-3.1); URINE KETONE NEGATIVE (NEGATIVE); URINE LEUK ESTERASE NEGATIVE (NEGATIVE); URINE NITRITE NEGATIVE (NEGATIVE); URINE PROTEIN NEGATIVE (NEGATIVE); URINE RBC 160.3 /uL (0-23.9); URINE UROBILINOGEN 0.2 mg/dL (0.2-1.0)
[2020-08-05 12:11] LABS: POTASSIUM 4.3 mmol/L (3.5-5.1)
[2020-08-05 12:15] LABS: BLOOD UREA NITROGEN 8.2 mg/dL (7-18); CALCIUM 9.4 mg/dL (8.5-10.1)
[2020-08-05 12:18] LABS: CREATININE 0.7 mg/dL (0.55-1.3)
[2020-08-05 12:20] LABS: BILIRUBIN,TOTAL 0.3 mg/dL (0.2-1)
[2020-08-05 14:02] VITALS: BP 108/69; PULSE 74; TEMP 98.1
== END 2020-08-05 14:02 | disposition home or self-care (01) ==
LOC: JER 10:50
DX: O20.0 Threatened abortion (principal)
CPT/HCPCS: 36415; 76817-TC; 80053; 81003; 84702; 85025; 86850; 86900; 86901; 87086; 99284-25

== ENCOUNTER 2020-08-07 16:06 | Emergency (ER) | payer OTHER ==
[2020-08-07 16:19] VITALS: BMI 25.6
[2020-08-07 17:29] LABS: BASO % 0.6 % (0-2.0); EOS % 1.2 % (0-4.5); HEMATOCRIT 38.2 % (32.4-45.2); HEMOGLOBIN 12.3 GM/dL (10.7-15.3); LYMPH % 23.3 % (8-40); MCH 29.1 pg (25.7-33.7); MCHC 32.2 g/dl (32.0-36.0); MEAN CELL VOLUME 90.4 fl (80-96); MEAN PLT VOLUME 9.6 fl (7.5-11.1); MONO % 6.6 % (3.8-10.2); NEUT % 68.3 % (42.8-82.8); PLATELET COUNT 235 K/MM3 (134-434); RBC 4.23 M/mm3 (3.60-5.2); RDW 13.9 % (11.6-15.6)
[2020-08-07 18:48] VITALS: BP 108/83; PULSE 74; TEMP 98
== END 2020-08-07 18:50 | disposition home or self-care (01) ==
LOC: JER 16:06
DX: O03.9 Complete or unspecified spontaneous abortion without complication (principal)
CPT/HCPCS: 36415; 76817-TC; 84702; 85025; 99284-25

== ENCOUNTER 2022-12-15 20:43 | Emergency (ER) | payer OTHER ==
[2022-12-15 21:02] VITALS: BP 151/89; PULSE 75; RESP 18; TEMP 98.4; BMI 21.0
[2022-12-15] MEDS ORDERED: IBUPROFEN 400 MG TABLET (FP) PO ONE ×2 (22:29→22:34)
== END 2022-12-16 01:28 | disposition home or self-care (01) ==
LOC: JER 20:43 → JERFT 20:43 → JER 12-16 00:31
DX: R42 Dizziness and giddiness (principal); R51.9 Headache, unspecified; R07.9 Chest pain, unspecified; M54.2 Cervicalgia; V49.40XA Driver injured in collision with unspecified motor vehicles in traffic accident, initial encounter
CPT/HCPCS: 70450-TC; 71046-TC-FY; 72125-TC; 93005; 93010; 99285-25

== ENCOUNTER 2023-06-30 03:25 | Emergency (ER) | payer OTHER ==
[2023-06-30 03:35] VITALS: BP 138/87; PULSE 103; RESP 18; TEMP 98.6; BMI 27.8
[2023-06-30] MEDS ORDERED: METOCLOPRAMIDE HCL 10 MG TABLET (FP) PO ONE (04:46)
[2023-06-30] MEDS ORDERED: ALBUTEROL SO4 2.5/IPRATROPIUM 0.5 INH SOL 3 ML VIAL.NEB. NEB ONE (04:51)
[2023-06-30] MEDS: METOCLOPRAMIDE HCL 10 MG TABLET (FP) PO ONE (04:57)
[2023-06-30] MEDS ORDERED: NAPROXEN 500 MG TABLET ONE (05:00)
[2023-06-30] MEDS: NAPROXEN 500 MG TABLET PO ONE (05:07)
[2023-06-30] MEDS ORDERED: AMOX TR/POT CLAV 875MG/125MG TABLETS (FP) PO ONE (06:48)
[2023-06-30] MEDS ORDERED: ALBUTEROL SO4 HFA INHALER IH ONE ×2 (07:14→07:15)
== END 2023-06-30 07:16 | disposition home or self-care (01) ==
LOC: JER 03:25
DX: M54.2 Cervicalgia (principal); G89.29 Other chronic pain; H92.01 Otalgia, right ear; R51.9 Headache, unspecified; R05.9 Cough, unspecified; H66.91 Otitis media, unspecified, right ear; Z20.822 Contact with and (suspected) exposure to COVID-19
CPT/HCPCS: 0241U-QW; 99283-25

== ENCOUNTER 2023-12-18 20:35 | Emergency (ER) | payer OTHER ==
[2023-12-18 20:45] VITALS: BP 136/92; PULSE 94; RESP 20; TEMP 98.7; BMI 28.1
== END 2023-12-18 21:59 | disposition home or self-care (01) ==
LOC: JERFT 20:35 → JER 20:35 → JERFT 21:59
DX: M79.605 Pain in left leg (principal); M79.622 Pain in left upper arm; M79.652 Pain in left thigh; R51.9 Headache, unspecified; V49.40XA Driver injured in collision with unspecified motor vehicles in traffic accident, initial encounter; Y92.410 Unspecified street and highway as the place of occurrence of the external cause
CPT/HCPCS: 99283-25